=== PATIENT | female | born 1955 | race Caucasian/White ===

== ENCOUNTER 2020-09-12 09:38 | Outpatient (REF) | payer OTHER, SELFPAY ==
[2020-09-12 11:51] LABS: Estimated Average Glucose 91 mg/dL; Hemoglobin A1c % 4.8 %
[2020-09-12 11:56] LABS: Alanine Aminotransferase 19 U/L (0-31); Anion Gap 11 (12-20); Aspartate Amino Transferase 33 U/L (5-31); Blood Urea Nitrogen 9 mg/dL (9-16); Calcium 9.7 mg/dL (8.4-10.2); Carbon Dioxide 34 mmol/L (22-29); Chloride 96 mmol/L (96-108); Cholesterol 186 mg/dL; Estimated Glomerular Filt Rate > 60; Glucose Fasting 108 mg/dL (60-99); HDL Cholesterol 71 mg/dL; LDL Cholesterol Calculated 95 mg/dl; Sodium 137 mmol/L (135-145); Triglycerides 101 mg/dL
[2020-09-12 12:18] LABS: Vitamin D 25-OH Total 68.6 ng/mL (>30)
== END 2020-09-12 09:39 | disposition home or self-care (01) ==
LOC: HO.HMGCLDS 09:38
PROVIDERS: PCP Internal Medicine; Visit Provider Internal Medicine
DX: I10 Essential (primary) hypertension (principal); E78.5 Hyperlipidemia, unspecified; E55.9 Vitamin D deficiency, unspecified; R73.01 Impaired fasting glucose
CPT/HCPCS: 80048; 80061; 82306; 83036; 84450; 84460

== ENCOUNTER 2023-01-08 12:28 | Outpatient (AMB) | payer OTHER, SELFPAY ==
--- NOTE | 2023-01-08 12:33 | A.OFFPC_ITS ---
Vital Signs 01/08/23 12:35 Height 5 ft 3 in Weight 144 lb BMI 25.4 BP 158/90 H Blood Pressure Location Lt brachial Position Sitting Pulse 58 Pulse Source Pulse Oximeter Pulse Oximetry (%) 97 Intake Visit Reasons: Annual PE due for mammo & colonoscopy Intake Note: Pt is here today for her PE Allergies No Known Allergies Allergy (Verified 01/08/23 12:36) Medication List - Last Reconciled 01/08/23 by Tegan Rodriguez MD alprazolam 1 mg PO DAILY PRN amlodipine 2.5 mg PO DAILY atenolol 100 mg PO DAILY cholecalciferol (vitamin D3) 50 mcg PO DAILY escitalopram oxalate 10 mg PO DAILY hydrochlorothiazide 25 mg PO DAILY Tobacco use date assessed: 01/08/23 Fall risk assessment: 1 Fall in past year Last assessed Fall Risk: 01/08/23 [facility] Medical History (Updated 01/08/23 @ 13:26 by Tegan Rodriguez MD) Anxiety disorder Colon cancer screening Colonoscopy refused Dyslipidemia Erythema intertrigo Essential hypertension Immunization refused Impaired fasting glucose Mammogram declined Osteoporosis Surgical History History of surgery on arm Family History Father Unknown family medical history Mother HTN (hypertension) Diabetes mellitus Brother No problems noted. Sister No problems noted. Social History Housing: House Alcohol intake: current Alcohol intake frequency: a few times a month Patient Tobacco Use Status: Current everyday Tobacco user Cigarette Packs Per Day: 1 e-Cigarette/Vaping Use: Never Used Current occupational status: retired Cognitive needs: No Hearing needs: No Vision needs: Yes Questionnaire PHQ-9 Over the last 2 weeks, how often have you been bothered by any of the following problems? 1. Little interest or pleasure in doing things: not at all 2. Feeling down, depressed, or hopeless: not at all 3. Trouble falling or staying asleep, or sleeping too much: not at all 4. Feeling tired or having little energy: not at all 5. Poor appetite or overeating: not at all 6. Feeling bad about yourself - or that you are a failure or have let yourself or your family down: not at all 7. Trouble concentrating on things, such as reading the newspaper or watching te levision: not at all 8. Moving or speaking so slowly that other people could have noticed. Or the opposite - being so fidgety or restless that you have been moving around a lot more than usual: not at all 9. Thoughts that you would be better off or of hurting yourself in some way: not at all Total score: 0 Source: Developed by Drs. Arden Jean, Lamar Lin, Danial Ward and colleagues, with an educational marie from [employer]. Thrive Questionnaire Declines Thrive assessment: No Date Thrive assessed: 01/08/23 I am a: Patient Within the past 12 months, did the food you bought not last and you didn't have the money to get more?: Never true Within the past 12 months, did you worry whether your food would run out before you got money to buy more?: Never true Do you have trouble paying for medicines?: No Do you have trouble getting transportation to medical appointments?: No Do you have trouble paying your heating and electricity bill?: No Do you have trouble taking care of your child, family member or friend?: No Do you have trouble with day-to-day activities such as bathing, preparing meals, shopping, managing finances, etc.?: No Are you currently unemployed and looking for a job?: No Are you interested in more education?: No AUDIT C Alcohol Use Questionnaire (AUDIT-C) 1. How often do you have a drink containing alcohol?: 2-3 times a week 2. How many drinks containing alcohol do you have on a typical day when you are drinking?: 1 or 2 3. How often do you have six or more drinks on one occasion?: Never Total Score: 3 GABRIELLA-7 AMB Questionnaire GABRIELLA-7 Date GABRIELLA - 7 assessed: 01/08/23 Feeling nervous, anxious, or on edge: 0 = Not at all Not being able to stop or control worryin = Not at all Worrying too much about different things: 0 = Not at all Trouble relaxin = Not at all Being so restless that it is hard to sit still: 0 = Not at all Becoming easily annoyed or irritable: 0 = Not at all Feeling afraid as if something awful might happen: 0 = Not at all Total GABRIELLA-7 score (0-4 normal; 5-9 mild; 10-14 moderate; 15-21 severe): 0 Source: Developed by Drs. Arden Jean, Lamar Lin, Danial Ward and colleagues, with an educational marie from [employer]. Physical exam (Primary Care) Vital Signs: Last Vital Signs Pulse 58 01/08/23 12:35 BP 158/90 H 01/08/23 12:35 Pulse Ox 97 01/08/23 12:35 BMI result Body Mass Index 25.4 Tobacco/Smoking Status: Tobacco use Status Tobacco use date assessed 01/08/23 01/08/23 12:38 Patient Tobacco Use Status Current everyday Tobacco 01/08/23 12:38 e-Cigarette/Vaping Use Never Used 01/08/23 12:38 PHQ-9: PHQ-9 Score PHQ-9: Total score 0 01/08/23 12:38 Thrive Assessment: Date of Thrive Assessment Date Thrive assessed 01/08/23 01/08/23 12:38 Assessment and Plan Assessment & Plan (1) Colonoscopy refused: Code(s): Z53.20 - Procedure and treatment not carried out because of patient's decision for unspecified reasons (2) Osteoporosis: Code(s): M81.0 - Age-related osteoporosis without current pathological fracture Qualifiers: Osteoporosis type: age-related Presence of current pathological fracture: without current pathological fracture Qualified Code(s): M81.0 - Age- related osteoporosis without current pathological fracture (3) Dyslipidemia: Code(s): E78.5 - Hyperlipidemia, unspecified (4) Impaired fasting glucose: Code(s): R73.01 - Impaired fasting glucose (5) Anxiety disorder: Code(s): F41.9 - Anxiety disorder, unspecified Qualifiers: Anxiety disorder type: generalized anxiety disorder Qualified Code(s): F41.1 - Generalized anxiety disorder (6) Essential hypertension: Code(s): I10 - Essential (primary) hypertension Plan: Blood pressure elevated today. Increase amlodipine dose to 5 mg once a day in a.m. continue hydrochlorothiazide, atenolol. Blood pressure goal is less than 130/80. . Reinforced importance of following a low sodium diet, getting regular exercise, and lowering stress levels. (7) Annual visit for general adult medical examination with abnormal findings: Code(s): Z00.01 - Encounter for general adult medical examination with abnormal findings Orders: Orders Alanine Aminotransferase Today E78.5 - Hyperlipidemia, unspecified, F41.1 - Generalized anxiety disorder, I10 - Essential (primary) hypertension, M81.0 - Age-related osteoporosis without current pathological fracture, R73.01 - Impaired fasting glucose, Z00.01 - Encounter for general adult medical examination with abnormal findings Aspartate Amino Transferase Today E78.5 - Hyperlipidemia, unspecified, F41.1 - Generalized anxiety disorder, I10 - Essential (primary) hypertension, M81.0 - Age-related osteoporosis without current pathological fracture, R73.01 - Impaired fasting glucose, Z00.01 - Encounter for general adult medical examination with abnormal findings, Z28.21 - Immunization not carried out because of patient refusal, Z53.20 - Procedure and treatment not carried out because of patient's decision for unspecified reasons Basic Metabolic Panel Fasting Today E78.5 - Hyperlipidemia, unspecified, F41.1 - Generalized anxiety disorder, I10 - Essential (primary) hypertension, M81.0 - Age-related osteoporosis without current pathological fracture, R73.01 - Impaired fasting glucose, Z00.01 - Encounter for general adult medical examination with abnormal findings, Z28.21 - Immunization not carried out because of patient refusal, Z53.20 - Procedure and treatment not carried out because of patient's decision for unspecified reasons Lipid Panel Today E78.5 - Hyperlipidemia, unspecified, F41.1 - Generalized anxiety disorder, I10 - Essential (primary) hypertension, M81.0 - Age-related osteoporosis without current pathological fracture, R73.01 - Impaired fasting glucose, Z00.01 - Encounter for general adult medical examination with abnormal findings, Z28.21 - Immunization not carried out because of patient refusal, Z53.20 - Procedure and treatment not carried out because of patient's decision for unspecified reasons Vitamin D 25-OH Total Today E78.5 - Hyperlipidemia, unspecified, F41.1 - Generalized anxiety disorder, I10 - Essential (primary) hypertension, M81.0 - Age-related osteoporosis without current pathological fracture, R73.01 - Impaired fasting glucose, Z00.01 - Encounter for general adult medical examination with abnormal findings, Z28.21 - Immunization not carried out because of patient refusal, Z53.20 - Procedure and treatment not carried out because of patient's decision for unspecified reasons Medications: Changed From amlodipine 2.5 mg PO DAILY 90 tabs 0RF I10 - Essential (primary) hypertension To amlodipine 5 mg PO DAILY 90 tabs 4RF I10 - Essential (primary) hypertension From alprazolam take 1/2 to 1 tablet once a day only as needed for acute anxiety attacks 1 mg PO DAILY PRN 30 tabs 0RF anxiety F41.9 - Anxiety disorder, unspecified To alprazolam 0.25 mg PO DAILY PRN 20 tabs 0RF anxiety F41.9 - Anxiety disorder, unspecified Refilled atenolol 100 mg PO DAILY 90 tabs 3RF I10 - Essential (primary) hypertension escitalopram oxalate 10 mg PO DAILY 90 tabs 3RF F41.9 - Anxiety disorder, unspecified Coding Level of Care Code Est Pt Prev Care >65y(74325) Diagnoses Colonoscopy refused Z53.20 Osteoporosis M81.0 Osteoporosis type: age-related Presence of current pathological fracture: without current pathological fracture Dyslipidemia E78.5 Impaired fasting glucose R73.01 Anxiety disorder F41.1 Anxiety disorder type: generalized anxiety disorder Essential hypertension I10 Annual visit for general adult medical examination with abnormal findings Z00.01
[2023-01-08 12:35] VITALS: BP 158/90; PULSE 58; O2SAT 97; BMI 25.4
== END 2023-01-08 13:50 | disposition home or self-care (01) ==
LOC: HO.HMGC 12:28
PROVIDERS: PCP Internal Medicine; Visit Provider Internal Medicine
DX: Z53.20 Procedure and treatment not carried out because of patient's decision for unspecified reasons (principal); M81.0 Age-related osteoporosis without current pathological fracture; E78.5 Hyperlipidemia, unspecified; R73.01 Impaired fasting glucose; F41.1 Generalized anxiety disorder; I10 Essential (primary) hypertension; Z00.01 Encounter for general adult medical examination with abnormal findings
CPT/HCPCS: 99499

== ENCOUNTER 2023-09-22 09:00 | Outpatient (REF) | payer OTHER, SELFPAY ==
[2023-09-22 12:33] LABS: Alanine Aminotransferase 9 U/L (0-31); Anion Gap 14 (12-20); Aspartate Amino Transferase 18 U/L (5-31); Blood Urea Nitrogen 13 mg/dL (9-16); Calcium 10.8 mg/dL (8.4-10.2); Carbon Dioxide 32 mmol/L (22-29); Chloride 93 mmol/L (96-108); Cholesterol 197 mg/dL (<200); Estimated Glomerular Filt Rate > 60; Glucose Fasting 114 mg/dL (60-99); HDL Cholesterol 61 mg/dL (>40); LDL Cholesterol Calculated 120 mg/dL (<100); Potassium 3.3 mmol/L (3.3-5.1); Sodium 136 mmol/L (135-145); Triglycerides 82 mg/dL (<150)
== END 2023-09-22 09:01 | disposition home or self-care (01) ==
LOC: HO.HMGCLDS 09:00
PROVIDERS: PCP Internal Medicine; Visit Provider Internal Medicine
DX: Z00.01 Encounter for general adult medical examination with abnormal findings (principal); M81.0 Age-related osteoporosis without current pathological fracture; E78.5 Hyperlipidemia, unspecified; R73.01 Impaired fasting glucose; F41.1 Generalized anxiety disorder; I10 Essential (primary) hypertension
CPT/HCPCS: 36415; 80048; 80061; 82306; 84450; 84460

== ENCOUNTER 2023-10-29 13:10 | Outpatient (AMB) | payer OTHER, SELFPAY ==
[2023-10-29 13:24] VITALS: BP 128/64; PULSE 64; O2SAT 96; BMI 24.4
--- NOTE | 2023-10-29 13:24 | MHC.PC.OV ---
Vital Signs 10/29/23 13:24 Height 5 ft 3 in Weight 138 lb BMI 24.4 BP 128/64 Blood Pressure Location Lt brachial Position Sitting Pulse 64 Pulse Source Pulse Oximeter Pulse Oximetry (%) 96 Oxygen Delivery Method Room Air Intake Visit Reasons: Dermatology Referral, rescheduled from 09/30 Intake Note: Pt is here today for a follow up visit.Pt states that she needs referral to [facility] Inspector. Allergies No Known Allergies Allergy (Verified 01/06/24 16:18) Medication List - Last Reconciled 10/29/23 by Tegan Rodriguez MD alprazolam 0.25 mg PO DAILY PRN atenolol 100 mg PO DAILY cholecalciferol (vitamin D3) 50 mcg PO DAILY hydrochlorothiazide 25 mg PO DAILY Tobacco use date assessed: 10/29/23 Dental Screening Dental Screen Date: 10/29/23 Did you have a dental visit in the last 12 months?: No Did you have a dental problem in the last 6 months where you did not have access to dental care?: No Was dental information given to patient?: Patient declined HPI Dermatology Referral, rescheduled from 09/30 HPI Details 68-year-old lady with hypertension, osteoporosis, dyslipidemia , elevated calcium level on recent labs, impaired fasting glucose, and anxiety disorder, here today for follow-up. She has been feeling well, but has lump on her right arm that has been present diarrhea for more than 20 years, but has started to increase in size and has started having foul-smelling discharge,- she wants to get checked. No history of trauma [facility] Medical History Hypercalcemia Basal cell carcinoma (11/25/23) Mammogram declined Immunization refused Colon cancer screening Colonoscopy refused Erythema intertrigo Osteoporosis Dyslipidemia Impaired fasting glucose Anxiety disorder Essential hypertension Surgical History History of excision of mass (11/25/23) History of surgery on arm Family History Father Unknown family medical history Mother HTN (hypertension) Diabetes mellitus Brother No problems noted. Sister No problems noted. Social History Housing: House Alcohol intake: current Alcohol intake frequency: a few times a month Patient Tobacco Use Status: Current everyday Tobacco user Cigarette Packs Per Day: 1 e-Cigarette/Vaping Use: Never Used Current occupational status: retired Cognitive needs: No Hearing needs: No Vision needs: Yes Questionnaire PHQ-9 Over the last 2 weeks, how often have you been bothered by any of the following problems? Depression Screening Interpretation: Negative Depression Screening Done: Yes Source: Developed by Drs. Arden Jean, Lamar Lin, Danial Ward and colleagues, with an educational marie from [employer]. Thrive Questionnaire Date Thrive assessed: 01/08/23 AUDIT C Alcohol Use Questionnaire (AUDIT-C) 1. How often do you have a drink containing alcohol?: Never Total Score: 0 GABRIELLA-7 AMB Questionnaire GABRIELLA-7 Date GABRIELLA - 7 assessed: 01/08/23 Source: Developed by Drs. Arden Jean, Lamar Lin, Danial Ward and colleagues, with an educational marie from [employer]. Review of Systems Const Denies fatigue, Denies fever(s), Denies headache(s) and Denies weakness Eyes Denies change in vision ENT Denies dizziness, Denies headache(s), Denies nasal congestion and Denies nasal discharge Card Denies chest pain, Denies lightheadedness, Denies palpitations and Denies dyspnea Resp Denies chest congestion, Denies cough, Denies dyspnea and Denies wheezing GI Denies abdominal pain, Denies melena, Denies bloating, Denies hematochezia, Denies change in bowel habits and Denies heartburn Denies urinary frequency, Denies dysuria and Denies urinary urgency Musc Reports as per HPI, Denies arthralgias and Reports stiffness Skin/Breast Reports as per HPI and Denies rash Neuro Denies dizziness, Denies headache(s) and Denies weakness Psych Denies anxiety, Denies change in appetite, Denies depression, Denies difficulty concentrating, Denies anhedonia, Denies mood swings, Denies panic attacks, Denies homicidal ideation and Denies suicidal ideation Endo Denies fatigue, Denies polydipsia, Denies polyuria and Denies palpitations Jameson/Lymph Denies easy bruising Aller/Immun Denies seasonal rhinorrhea and Denies wheezing Physical exam (Primary Care) Vital Signs: Last Vital Signs Pulse 64 10/29/23 13:24 BP 128/64 10/29/23 13:24 Pulse Ox 96 10/29/23 13:24 Oxygen Delivery Method Room Air 10/29/23 13:24 BMI result Body Mass Index 24.4 Tobacco/Smoking Status: Tobacco use Status Tobacco use date assessed 10/29/23 10/29/23 13:31 Patient Tobacco Use Status Former Tobacco user 10/29/23 13:31 e-Cigarette/Vaping Use Never Used 10/29/23 13:31 Depression Screening Interpretation: Negative Thrive Assessment: Date of Thrive Assessment Date Thrive assessed 01/08/23 10/29/23 13:31 Const General: no acute distress and alert Orientation/consciousness: patient oriented x3 HENMT Ears: external ears normal General nose exam: Normal external nose present Mouth: Normal oral and palatal mucosa present and moist mucous membranes Eyes General: appearance normal, both eyes and all related structures Neck Neck: Yes full ROM, Yes no lymphadenopathy and Yes supple Resp Effort & Inspection: normal respiratory effort and able to speak in complete sentences Auscultation: clear to auscultation bilaterally Cardio Rate: regular rate Rhythm: regular rhythm Heart sounds: S1 normal heart sound present and S2 normal heart sound present GI Palpation (GI): Soft to palpation, nontender and no masses Auscultation: normal bowel sounds Back/Spine/Pelvis Back: No back tenderness Neuro General: patient oriented x3, gait normal, tone normal, moves all extremities, Normal light touch and pain sensation and no focal motor deficits Cranial nerves: Yes CN's II-XII intact bilaterally Cognition (Neuro): normal cognition Extrem Other: Firm nontender hyperpigmented mass on right upper arm General: Yes full ROM, Yes no joint enlargement, Yes no clubbing, cyanosis or edema and Yes no calf tenderness Assessment and Plan Assessment & Plan (1) Mass of right upper extremity: Code(s): R22.31 - Localized swelling, mass and lump, right upper limb Plan: Referred to general surgery for further evaluation (2) Essential hypertension: Code(s): I10 - Essential (primary) hypertension Plan: Blood pressure at goal of less than 130/80. Continue with current medication. Reinforced importance of following a low sodium diet, getting regular exercise, and lowering stress levels. (3) Impaired fasting glucose: Code(s): R73.01 - Impaired fasting glucose Plan: Your fasting blood sugars elevated above 100 mg/dL. Impaired glucose metabolism makes you at risk for developing diabetes mellitus type 2, as well as heart attack and stroke later on. Lifestyle changes at just weight loss, healthy eating habits, and regular exercise are important, and can prevent the progression to diabetes. Ordered repeat fasting lipid panel and hemoglobin A1c (4) Dyslipidemia: Code(s): E78.5 - Hyperlipidemia, unspecified Plan: Fasting lipid panel ordered, continue with adhering to healthy diet, and getting regular exercise. (5) Hypercalcemia: Code(s): E83.52 - Hypercalcemia Plan: Ordered ionized calcium level Orders: Orders Hemoglobin A1c 12/06/23 E83.52 - Hypercalcemia, I10 - Essential (primary) hypertension, R73.01 - Impaired fasting glucose, E78.5 - Hyperlipidemia, unspecified, M81.0 - Age-related osteoporosis without current pathological fracture, E89.40 - Asymptomatic postprocedural ovarian failure Calcium, Ionized 12/06/23 E83.52 - Hypercalcemia, I10 - Essential (primary) hypertension, R73.01 - Impaired fasting glucose, E78.5 - Hyperlipidemia, unspecified, M81.0 - Age-related osteoporosis without current pathological fracture, E89.40 - Asymptomatic postprocedural ovarian failure Vitamin D 25-OH Total 12/06/23 E83.52 - Hypercalcemia, I10 - Essential (primary) hypertension, R73.01 - Impaired fasting glucose, E78.5 - Hyperlipidemia, unspecified, M81.0 - Age-related osteoporosis without current pathological fracture, E89.40 - Asymptomatic postprocedural ovarian failure Alanine Aminotransferase 12/06/23 E83.52 - Hypercalcemia, I10 - Essential (primary) hypertension, R73.01 - Impaired fasting glucose, E78.5 - Hyperlipidemia, unspecified, M81.0 - Age-related osteoporosis without current pathological fracture, E89.40 - Asymptomatic postprocedural ovarian failure Lipid Panel 12/06/23 E83.52 - Hypercalcemia, I10 - Essential (primary) hypertension, R73.01 - Impaired fasting glucose, E78.5 - Hyperlipidemia, unspecified, M81.0 - Age-related osteoporosis without current pathological fracture, E89.40 - Asymptomatic postprocedural ovarian failure Basic Metabolic Panel Fasting 12/06/23 E83.52 - Hypercalcemia, I10 - Essential (primary) hypertension, R73.01 - Impaired fasting glucose, E78.5 - Hyperlipidemia, unspecified, M81.0 - Age-related osteoporosis without current pathological fracture, E89.40 - Asymptomatic postprocedural ovarian failure Aspartate Amino Transferase 12/06/23 E83.52 - Hypercalcemia, I10 - Essential (primary) hypertension, R73.01 - Impaired fasting glucose, E78.5 - Hyperlipidemia, unspecified, M81.0 - Age-related osteoporosis without current pathological fracture, E89.40 - Asymptomatic postprocedural ovarian failure Referrals General Surgery Referral R22.31 - Localized swelling, mass and lump, right upper limb Medications: Refilled alprazolam 0.25 mg PO DAILY PRN 20 tabs 0RF anxiety F41.9 - Anxiety disorder, unspecified Coding Level of Care Code Est Pt Level 4 (65213) Diagnoses Mass of right upper extremity R22.31 Essential hypertension I10 Impaired fasting glucose R73.01 Dyslipidemia E78.5 Hypercalcemia E83.52
== END 2023-10-29 14:46 | disposition home or self-care (01) ==
PROVIDERS: PCP Internal Medicine; Visit Provider Internal Medicine
DX: R22.31 Localized swelling, mass and lump, right upper limb (principal); I10 Essential (primary) hypertension; R73.01 Impaired fasting glucose; E78.5 Hyperlipidemia, unspecified; E83.52 Hypercalcemia
CPT/HCPCS: 99214

== ENCOUNTER 2023-11-02 14:13 | Outpatient (AMB) | payer OTHER, SELFPAY ==
--- NOTE | 2023-11-02 14:27 | A.OFFVIS_ITS ---
Intake Vital Signs 11/02/23 14:37 Height 5 ft 3 in Weight 139 lb 2 oz BMI 24.6 BP 171/73 H Blood Pressure Location Lt brachial Position Sitting Pulse 59 Intake Visit Reasons: mass and lump, right upper limb Intake Note: Patient is seen in office for evaluation and treatment of a mass on the upper right limb. 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 She has a right upper outer arm mass which she has had for approximately 30 years time. It has become quite large and symptomatic. She wishes to have it excised. She has no such lesions elsewhere. Chart was reviewed patient evaluated [facility] Medical History (Updated 01/08/23 @ 13:26 by Tegan Rodriguez MD) Mammogram declined Immunization refused Colon cancer screening Colonoscopy refused Erythema intertrigo Osteoporosis Dyslipidemia Impaired fasting glucose Anxiety disorder Essential hypertension Surgical History History of surgery on arm Family History Father Unknown family medical history Mother HTN (hypertension) Diabetes mellitus Brother No problems noted. Sister No problems noted. Social History Housing: House Alcohol intake: current Alcohol intake frequency: a few times a month Patient Tobacco Use Status: Former Tobacco user Quit Date: 10/27/23 Cigarette Packs Per Day: 1 e-Cigarette/Vaping Use: Never Used Current occupational status: retired Cognitive needs: No Hearing needs: No Vision needs: Yes Physical Exam Vital Signs: Last Vital Signs Pulse 59 11/02/23 14:37 BP 171/73 H 11/02/23 14:37 BMI result Body Mass Index 24.6 Chest Other: Chest sounds bilaterally, HS 1 in 2 GI Other: Abdomen soft, corpulent, benign Skin Other: Patient has approximately 5 x 4 cm exophytic fungating growth of the upper outer arm. 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 Risks, benefits, alternatives of excision of this process were reviewed the patient and included but not limited to bleeding, infection, recurrence, numbness, pain, scarring, wound dehiscence, wound seroma and the patient was to proceed. All questions were answered. Arrangements were made for this. Coding Level of Care Code New Pt Level 5 (89929) Diagnoses Mass of soft tissue of upper arm M79.89
[2023-11-02 14:37] VITALS: BP 171/73; PULSE 59; BMI 24.6
== END 2023-11-02 14:53 | disposition home or self-care (01) ==
PROVIDERS: PCP Internal Medicine; Visit Provider Surgery
DX: M79.89 Other specified soft tissue disorders (principal)
CPT/HCPCS: 99204

== ENCOUNTER → 2023-11-02 14:13 | Outpatient (BNVA) | payer OTHER, SELFPAY | PROVIDERS: PCP Internal Medicine; Visit Provider Surgery ==

== ENCOUNTER 2023-11-25 07:51 | Day surgery (SDC) | payer OTHER, SELFPAY ==
[2023-11-23 09:55] VITALS: BMI 24.4
--- NOTE | 2023-11-24 15:06 | MHC.SHP ---
Pre-Procedural Eval Section A Date of Service: 11/24/23 The patient is an INPATIENT: No Changes since office visit: No Cold of Flu in the past 2 weeks, No New Medical Problems, No Changes in Medication and No Patient answered all questions The History & Physical has been completed within 30 days and I have reviewed it.: Yes Section B Chief Complaint: Other specified soft tissue disorders Allergies: Allergies Allergy/AdvReac Type Severity Reaction Status Date / Time No Known Allergies Allergy Verified 11/02/23 14:37 Plan I have reviewed the history and physical and performed a pertinent physical examination on my patient. No changes have occurred unless specified. Time Spent With Patient Time: Total time managing care of this patient today ____ minutes.
[2023-11-25] VITALS (9 sets, daily range): BP systolic 114–237; BP diastolic 63–86; PULSE 55–86; RESP 14–18; TEMP 36.7–36.8; O2SAT 91–95; BMI 25.2
[2023-11-25] MEDS: Lactated Ringers 1,000 ML 50 ML IVCONT (08:13)
--- NOTE | 2023-11-25 08:53 | PC.NURSE ---
Dr. Bennett aware that patient initial blood pressures - different arms, different cuffs, manual were 227/86, 231/96, 237/78. Patient relaxed and re-checked and result was 161/69. Dr. Bennett aware and okay. Dr. Holder ordered duoneb as well due to patient being heavy cigarette and marijuana smoker. lcta, but smokers cough noted often.
[2023-11-25] MEDS: Albuterol/Iprat 2.5/0.5MG 3 ML AMPUL.NEB INHALE (09:11)
--- NOTE | 2023-11-25 09:44 | P.CONAN_ITS ---
[facility] Active Problems Active Problems: All Active Problems (Updated 01/08/23 @ 13:26 by Tegan Rodriguez MD) Mass of soft tissue of upper arm (Acute) Mammogram declined (Acute) Immunization refused (Acute) Colon cancer screening (Acute) Colonoscopy refused (Acute) Osteoporosis (Acute) Dyslipidemia (Acute) Impaired fasting glucose (Acute) Anxiety disorder (Acute) Essential hypertension (Acute) Past Medical History Medical History Mammogram declined Immunization refused Colon cancer screening Colonoscopy refused Erythema intertrigo Osteoporosis Dyslipidemia Impaired fasting glucose Anxiety disorder Essential hypertension Family History Family History Father Unknown family medical history Mother HTN (hypertension) Diabetes mellitus Brother No problems noted. Sister No problems noted. Family history of problems with anesthesia: No Surgical History Surgical History History of surgery on arm History of Problems with Anesthesia: No Social History Social History Housing: House Alcohol intake: current Alcohol intake frequency: a few times a month Patient Tobacco Use Status: Current everyday Tobacco user Cigarette Packs Per Day: 1 e-Cigarette/Vaping Use: Never Used Substance Use Frequency: Daily Are you DNR?: No Advance Directives: No Advance Directives Information Provided: Yes Nutrition Risks: No Nutritional Risk Current occupational status: retired Cognitive needs: No Hearing needs: No Vision needs: Yes Meds Allergies Allergy/AdvReac Type Severity Reaction Status Date / Time No Known Allergies Allergy Verified 11/25/23 07:56 Active Medications: Current Medications Lactated Ringer's (Lr) 1,000 mls @ 50 mls/hr IVCONT .Q20H JOSÉ MIGUEL Last Admin: 11/25/23 08:13 Dose: 50 mls/hr Home Medications Medication Instructions Recorded Confirmed Last Taken Type cholecalciferol (vitamin D3) 50 50 mcg PO DAILY 03/31/21 11/25/23 Unknown History mcg (2,000 unit) capsule Exam Height,Weight and Vital Signs: Height 5 ft 3 in Weight 64.41 kg Last Vital Signs Temp 98.1 F 11/25/23 08:30 Pulse 67 11/25/23 09:13 Resp 17 11/25/23 09:13 BP 161/69 H 11/25/23 08:58 Pulse Ox 94 11/25/23 08:30 O2 Del Method Room Air 11/25/23 08:30 Airway Mallampati Class: II TM Dist: <=3cm Neck ROM: Full Denture: Upper Partial: Lower Heart: ok Lungs: ok Assessment and Plan Assessment Anesthesia Assessment: Anesthesia Plan Discussed and Chart Reviewed Final Anesthetic Review Family History of Problems with Anesthesia: No History of Problems with Anesthesia: No NPO: Yes ASA Class: II Final Preanesthetic Review: No Changes in Pt Med Stat, Meds/Allgs Chart Reviewed, Consent Obtained/Reviewed and Anes Risks/Benef Reviewed Patient Risk: Low Procedure Risk: Low Anesthetic Plan Anesthetic Plan: GA and Agree w/ Assess. and Plan Disposition: Standard PACU
--- NOTE | 2023-11-25 10:31 | W.PM.OPN ---
Operative Note Operative Note Date of Service: 11/25/23 Narrative: Preoperative diagnosis: [] Right upper outer arm exophytic mass Postop diagnosis: [] Same Procedure [] wide local excision right upper outer arm mass Surgeon: [] [employer] Operator: [] Rika Type of Anesthesia: [] General Indication for surgery: [] Final specimen measured approximately 10 x 6 cm of a fungating exophytic mass of the upper outer arm. Findings: [] Patient brought to the operating room, placed on operative table supine position, after adequate level of general anesthesia was induced, the right upper extremity and shoulder area were circumferentially prepped and draped in usual sterile fashion. Using a longitudinal bi- elliptical incision to grossly clear margins around the mass in question, this carried down through skin, subcutaneous tissue, and undermined using Bovie. Specimen was tagged and sent to pathology. Medial and lateral skin flaps were developed using Bovie and the wound was irrigated, secured hemostasis, and closed using interrupted inverted dermal 3-0 Vicryl sutures followed by Steri-Strips and sterile dressings. Wound was infiltrated 0.5% Marcaine. At completion, incision was well perfused and under no tension. Sponge, needle, and instrument counts were reported correct. Patient tolerated the procedure well and emerged anesthesia stable condition. EBL minimal
== END 2023-11-25 11:46 | disposition home or self-care (01) ==
PROVIDERS: PCP Internal Medicine; Visit Provider Surgery
PROC: (CPT 11606; principal; 2023-11-25 09:50)
DX: C44.612 Basal cell carcinoma of skin of right upper limb, including shoulder (principal); I10 Essential (primary) hypertension; R73.01 Impaired fasting glucose; E78.5 Hyperlipidemia, unspecified; M81.0 Age-related osteoporosis without current pathological fracture; F41.9 Anxiety disorder, unspecified; Z79.899 Other long term (current) drug therapy; Z87.891 Personal history of nicotine dependence; Z98.890 Other specified postprocedural states
CPT/HCPCS: 11606; 88305; J0690; J2250; J2704; J2795; J3010

== ENCOUNTER → 2023-11-25 07:51 | Outpatient (BNV) | payer OTHER, SELFPAY | PROVIDERS: PCP Internal Medicine; Visit Provider Surgery | DX: C44.612 Basal cell carcinoma of skin of right upper limb, including shoulder (principal) | CPT/HCPCS: 11606 ==

== ENCOUNTER → 2023-12-13 10:19 | Outpatient (BNVA) | payer OTHER, SELFPAY | PROVIDERS: PCP Internal Medicine; Visit Provider Surgery ==

== ENCOUNTER 2023-12-13 10:20 | Outpatient (AMB) | payer OTHER, SELFPAY ==
--- NOTE | 2023-12-13 10:28 | A.OFFVIS_ITS ---
Intake Vital Signs 12/13/23 10:29 Weight 139 lb BP 132/90 H Blood Pressure Location Lt brachial Position Sitting Pulse 66 Intake Visit Reasons: S/P WLE Rt. upper extremity tumor Intake Note: Patient here s/p exc on rt upper arm. Patient denies pain, oozing. Only took rx pain meds for the first 2d. 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 She has no wound issues or complaints. She presents here with . Pathology was reviewed. Basal cell carcinoma quite large was circumferentially clear margins [facility] Medical History Basal cell carcinoma (11/25/23) Mammogram declined Immunization refused Colon cancer screening Colonoscopy refused Erythema intertrigo Osteoporosis Dyslipidemia Impaired fasting glucose Anxiety disorder Essential hypertension Surgical History (Updated 12/13/23 @ 10:35 by Donte Reis MD) History of excision of mass (11/25/23) History of surgery on arm Family History Father Unknown family medical history Mother HTN (hypertension) Diabetes mellitus Brother No problems noted. Sister No problems noted. Social History Housing: House Alcohol intake: current Alcohol intake frequency: a few times a month Patient Tobacco Use Status: Current everyday Tobacco user Cigarette Packs Per Day: 1 e-Cigarette/Vaping Use: Never Used Current occupational status: retired Cognitive needs: No Hearing needs: No Vision needs: Yes Physical Exam Vital Signs: Last Vital Signs Pulse 66 12/13/23 10:29 BP 132/90 H 12/13/23 10:29 Extrem Other: Incision clean dry and intact healing uneventfully. Assessment & Plan Assessment & Plan (1) History of excision of mass: Onset Date: 11/25/23 Comment: Wide local excision right upper outer arm mass, Donte Reis MD Code(s): Z98.890 - Other specified postprocedural states Plan Patient has been given local instructions, and will see me approximate 6 months time for surveillance or p.r.n.. All questions answered. Coding Level of Care Code Global (72364) Diagnoses History of excision of mass Z98.890
[2023-12-13 10:29] VITALS: BP 132/90; PULSE 66
== END 2023-12-13 10:35 | disposition home or self-care (01) ==
PROVIDERS: PCP Internal Medicine; Visit Provider Surgery
DX: Z98.890 Other specified postprocedural states (principal)
CPT/HCPCS: 99024

== ENCOUNTER 2024-01-01 09:36 | Outpatient (REF) | payer OTHER, SELFPAY ==
[2024-01-01 12:03] LABS: Estimated Average Glucose 108 mg/dL; Hemoglobin A1c % 5.4 % (<6.0)
[2024-01-01 12:27] LABS: Alanine Aminotransferase 9 U/L (0-31); Anion Gap 11 (12-20); Aspartate Amino Transferase 15 U/L (5-31); Blood Urea Nitrogen 18 mg/dL (9-16); Carbon Dioxide 32 mmol/L (22-29); Chloride 98 mmol/L (96-108); Cholesterol 182 mg/dL (<200); Estimated Glomerular Filt Rate > 60; Glucose Fasting 93 mg/dL (60-99); HDL Cholesterol 64 mg/dL (>40); LDL Cholesterol Calculated 102 mg/dL (<100); Potassium 3.8 mmol/L (3.3-5.1); Sodium 137 mmol/L (135-145); Triglycerides 81 mg/dL (<150)
[2024-01-01 12:45] LABS: Vitamin D 25-OH Total 69.1 ng/mL (>30)
[2024-01-03 15:23] LABS: Calcium, Ionized 5.7 mg/dL (4.7-5.5)
== END 2024-01-01 09:37 | disposition home or self-care (01) ==
LOC: HO.HMGCLDS 09:36
PROVIDERS: PCP Internal Medicine; Visit Provider Internal Medicine
DX: E83.52 Hypercalcemia (principal); I10 Essential (primary) hypertension; R73.01 Impaired fasting glucose; E78.5 Hyperlipidemia, unspecified; M81.0 Age-related osteoporosis without current pathological fracture; E89.40 Asymptomatic postprocedural ovarian failure
CPT/HCPCS: 36415; 80048; 80061; 82306; 82330; 83036; 84450; 84460

== ENCOUNTER 2024-01-06 15:03 | Outpatient (AMB) | payer OTHER, SELFPAY ==
--- NOTE | 2024-01-06 16:00 | MHC.PC.OV ---
Vital Signs 01/06/24 16:01 Height 5 ft 3 in Weight 142 lb BMI 25.2 BP 122/74 Blood Pressure Location Lt brachial Position Sitting Pulse 58 Pulse Source Pulse Oximeter Pulse Oximetry (%) 94 Oxygen Delivery Method Room Air Intake Visit Reasons: f/u anxiety and labs Intake Note: Pt is here today to f/u anxiety and labs Allergies No Known Allergies Allergy (Verified 01/06/24 16:18) Medication List - Last Reconciled 01/06/24 by Tegan Rodriguez MD alprazolam 0.25 mg PO DAILY PRN atenolol 100 mg PO DAILY cholecalciferol (vitamin D3) 50 mcg PO DAILY hydrochlorothiazide 25 mg PO DAILY Tobacco use date assessed: 01/06/24 Fall risk assessment: No Falls in past year Last assessed Fall Risk: 01/06/24 Dental Screening Dental Screen Date: 01/06/24 Did you have a dental visit in the last 12 months?: No Was dental information given to patient?: No HPI f/u anxiety and labs HPI Details 68-year-old lady here today for follow-up. She has anxiety disorder currently taking alprazolam 0.25 mg 1 tablet once a day only as needed for acute anxiety attacks. She rarely needs to use it and still has some left over from her old prescription, but are . She has hypertension currently taking 100 mg of atenolol daily in addition to hydrochlorothiazide 25 mg once a day in a.m.. She has known osteoporosis, with no history of fracture, declines further testing [facility] Medical History Hypercalcemia Basal cell carcinoma (11/25/23) Mammogram declined Immunization refused Colon cancer screening Colonoscopy refused Erythema intertrigo Osteoporosis Dyslipidemia Impaired fasting glucose Anxiety disorder Essential hypertension Surgical History History of excision of mass (11/25/23) History of surgery on arm Family History Father Unknown family medical history Mother HTN (hypertension) Diabetes mellitus Brother No problems noted. Sister No problems noted. Social History Housing: House Alcohol intake: current Alcohol intake frequency: a few times a month Patient Tobacco Use Status: Current everyday Tobacco user Cigarette Packs Per Day: 1 e-Cigarette/Vaping Use: Never Used Current occupational status: retired Cognitive needs: No Hearing needs: No Vision needs: Yes Questionnaire PHQ-9 Over the last 2 weeks, how often have you been bothered by any of the following problems? 1. Little interest or pleasure in doing things: not at all 2. Feeling down, depressed, or hopeless: not at all 3. Trouble falling or staying asleep, or sleeping too much: not at all 4. Feeling tired or having little energy: not at all 5. Poor appetite or overeating: not at all 6. Feeling bad about yourself - or that you are a failure or have let yourself or your family down: not at all 7. Trouble concentrating on things, such as reading the newspaper or watching television: not at all 8. Moving or speaking so slowly that other people could have noticed. Or the opposite - being so fidgety or restless that you have been moving around a lot more than usual: not at all 9. Thoughts that you would be better off or of hurting yourself in some way: not at all Total score: 0 Depression Screening Interpretation: Negative Depression Screening Done: Yes 56504 - PHQ-9 Billing: Yes Source: Developed by Drs. Arden Jean, Lamar Lin, Danial Ward and colleagues, with an educational marie from [employer]. Thrive Questionnaire Date Thrive assessed: 01/08/23 I am a: Patient What is your living situation today?: I have a steady place to live Within the past 12 months, did the food you bought not last and you didn't have the money to get more?: Never true Within the past 12 months, did you worry whether your food would run out before you got money to buy more?: Never true Do you have trouble paying for medicines?: No Do you have trouble getting transportation to medical appointments?: No Do you have trouble paying your heating and electricity bill?: No Do you have trouble taking care of your child, family member or friend?: No Do you have trouble with day-to-day activities such as bathing, preparing meals, shopping, managing finances, etc.?: No Are you currently unemployed and looking for a job?: No Are you interested in more education?: No THRIVE Score: 0 AUDIT C Alcohol Use Questionnaire (AUDIT-C) 1. How often do you have a drink containing alcohol?: Monthly or less 2. How many drinks containing alcohol do you have on a typical day when you are drinking?: 1 or 2 3. How often do you have six or more drinks on one occasion?: Never Total Score: 1 GABRIELLA-7 AMB Questionnaire GABRIELLA-7 Date GABRIELLA - 7 assessed: 01/06/24 Feeling nervous, anxious, or on edge: 0 = Not at all Not being able to stop or control worryin = Several days Worrying too much about different things: 1 = Several days Trouble relaxin = Not at all Being so restless that it is hard to sit still: 0 = Not at all Becoming easily annoyed or irritable: 0 = Not at all Feeling afraid as if something awful might happen: 0 = Not at all Total GABRIELLA-7 score (0-4 normal; 5-9 mild; 10-14 moderate; 15-21 severe): 2 Source: Developed by Drs. Arden Jean, Lamar Lin, Danial Ward and colleagues, with an educational marie from [employer]. GABRIELLA-7 Assessment Billing GABRIELLA-7 Assessment Tool: GABRIELLA-7 Assessment 21084 Review of Systems Const Denies body aches, Denies fatigue, Denies fever(s), Denies headache(s) and Denies weakness Eyes Denies change in vision, Denies eye discharge and Denies itchy eyes ENT Denies dizziness, Denies headache(s), Denies nasal congestion, Denies nasal discharge and Denies sore throat Card Denies chest pain, Denies lightheadedness, Denies palpitations and Denies dyspnea Resp Denies chest congestion, Denies cough, Denies dyspnea and Denies wheezing GI Denies abdominal pain, Denies melena, Denies bloating, Denies hematochezia, Denies change in bowel habits and Denies heartburn Denies urinary frequency, Denies dysuria and Denies urinary urgency Musc Denies arthralgias and Reports stiffness Skin/Breast Denies lesions and Denies rash Neuro Denies dizziness, Denies headache(s) and Denies weakness Psych Denies anxiety, Denies change in appetite, Denies depression, Denies difficulty concentrating, Denies anhedonia, Denies mood swings, Denies panic attacks, Denies homicidal ideation and Denies suicidal ideation Endo Denies fatigue, Denies polydipsia, Denies polyuria and Denies palpitations Jameson/Lymph Denies easy bruising Aller/Immun Denies itchy eyes, Denies seasonal rhinorrhea and Denies wheezing Physical exam (Primary Care) Vital Signs: Last Vital Signs Pulse 58 01/06/24 16:01 BP 122/74 01/06/24 16:01 Pulse Ox 94 01/06/24 16:01 Oxygen Delivery Method Room Air 01/06/24 16:01 BMI result Body Mass Index 25.2 Tobacco/Smoking Status: Tobacco use Status Tobacco use date assessed 01/06/24 01/06/24 16:06 Patient Tobacco Use Status Current everyday Tobacco 01/06/24 16:06 e-Cigarette/Vaping Use Never Used 01/06/24 16:06 PHQ-9: PHQ-9 Score PHQ-9: Total score 0 01/06/24 16:35 Depression Screening Interpretation: Negative Thrive Assessment: Date of Thrive Assessment Date Thrive assessed 01/08/23 01/06/24 16:06 Const General: no acute distress and alert Orientation/consciousness: patient oriented x3 HENMT Ears: external ears normal General nose exam: Normal external nose present Mouth: Normal oral and palatal mucosa present and moist mucous membranes Eyes General: appearance normal, both eyes and all related structures Neck Neck: Yes full ROM, Yes no lymphadenopathy and Yes supple Resp Effort & Inspection: normal respiratory effort and able to speak in complete sentences Auscultation: clear to auscultation bilaterally Cardio Rate: regular rate Rhythm: regular rhythm Heart sounds: S1 normal heart sound present and S2 normal heart sound present GI Palpation (GI): Soft to palpation, nontender and no masses Auscultation: normal bowel sounds Back/Spine/Pelvis Back: No back tenderness Neuro General: patient oriented x3, gait normal, tone normal, moves all extremities, Normal light touch and pain sensation and no focal motor deficits Cranial nerves: Yes CN's II-XII intact bilaterally Cognition (Neuro): normal cognition Extrem General: Yes full ROM, Yes no joint enlargement, Yes no clubbing, cyanosis or edema and Yes no calf tenderness Psych Appearance: grossly normal and well kempt Mental Status: mental status grossly normal Speech and movement: Normal speech and movement present Affect: normal affect Attitude: cooperative Thought process: Normal thought process present Thought content: no homicidality Results Reviewed Results Reviewed: Name: Krysten Killian Age/Sex: 68/F : 1955 Unit#: [id number] Attend Dr: Tegan Rodriguez MD Re01/01/24 Status: DEP REF Location: [facility] Disch: SPEC : [id number] JAKE: 01/01/24 STATUS: COMP REQ : [id number] RECD: 01/01/24-[address]: Tegan Rodriguez MD COMP: 01/01/24 ENTERED: 01/01/24-[address]: ORDERED: Met Prof Fast, AST, ALT, Lipid Panel, Vitamin D 25-OH Test Result Flag Reference Sodium 137 135-145 mmol/L Potassium 3.8 3.3-5.1 mmol/L CL 98 96-108 mmol/L CO2 32 H 22-29 mmol/L Gap 11 L 12-20 BUN 18 H 9-16 mg/dL Creat 0.66 0.5-1.4 mg/dL EGFR > 60 NOTE: For -[place] individuals, multiply the result by 1.210. Chronic Kidney Disease: Estimated GFR < 60 mL/min/1.73m2 Severe Kidney Disease: Estimated GFR < 15 mL/min/1.73m2 FBS 93 60-99 mg/dL CA 10.0 # 8.4-10.2 mg/dL AST (GOT) 15 5-31 U/L ALT (GPT) 9 0-31 U/L Triglyceride 81 <150 mg/dL Desirable Triglyceride: less than 150 mg/dL Borderline High Triglyceride 150-199 mg/dL High Triglyceride: 200-499 mg/dL Very High Triglyceride: greater than or equal to 5OO mg/dL Cholesterol 182 <200 mg/dL Desirable Cholesterol: less than 200 mg/dL Borderline High Cholesterol: 200-239 mg/dL High Cholesterol: greater than 239 mg/dL LDL Calculated 102 H <100 mg/dL Desirable LDL: less than 100 mg/dL Near Optimal/Above Optimal LDL: 110-129 mg/dL Borderline High LDL: 130-159 mg/dL High LDL: 160-189 mg/dL Very High LDL: greater than or equal to 190 mg/dL HDL 64 >40 mg/dL Desirable HDL: greater than 40 mg/dL Note: This HDL assay may give artificially low results in patients with liver disease. Vit D 25-OH Tot 69.1 >30 ng/mL Health Based Reference Values* < 20 ng/mL Deficient 20-30 ng/mL Insufficient > 30 ng/mL Sufficient Assessment and Plan Assessment & Plan (1) Anxiety disorder: Code(s): F41.9 - Anxiety disorder, unspecified Qualifiers: Anxiety disorder type: generalized anxiety disorder Qualified Code(s): F41.1 - Generalized anxiety disorder Plan: Prescription was given for alprazolam, 0.25 mg per tablet to take 1 tablet only as needed for severe acute anxiety attacks. Patient aware of potential for medications be habit-forming (2) Hypercalcemia: Code(s): E83.52 - Hypercalcemia Plan: Mild elevation of serum calcium noted on recent labs.. Repeat ordered a repeat ionized calcium and serum parathyroid hormone levels to be done in a month (3) Immunization refused: Code(s): Z28.21 - Immunization not carried out because of patient refusal (4) Mammogram declined: Code(s): Z53.20 - Procedure and treatment not carried out because of patient's decision for unspecified reasons Plan: Patient refusing to get any vaccination (5) Essential hypertension: Code(s): I10 - Essential (primary) hypertension Plan: Blood pressure at goal of less than 130/80. Continue with current medication. Reinforced importance of following a low sodium diet, getting regular exercise, and lowering stress levels. Orders: Orders Basic Metabolic Panel Fasting 1 Month E83.52 - Hypercalcemia Parathyroid Hormone Intact 1 Month E83.52 - Hypercalcemia Calcium, Ionized 1 Month E83.52 - Hypercalcemia Medications: Refilled alprazolam 0.25 mg PO DAILY PRN 20 tabs 0RF anxiety F41.9 - Anxiety disorder, unspecified Coding Level of Care Code Est Pt Level 3 (42097) Diagnoses Generalized anxiety disorder F41.1 Anxiety disorder type: generalized anxiety disorder Hypercalcemia E83.52 Immunization refused Z28.21 Mammogram declined Z53.20 Essential hypertension I10 Additional Codes GABRIELLA-7 Assessment Billing - GABRIELLA-7 Assessment Tool: GABRIELLA-7 Assessment [id number] ([id number])
[2024-01-06 16:01] VITALS: BP 122/74; PULSE 58; O2SAT 94; BMI 25.2
== END 2024-01-06 16:33 | disposition home or self-care (01) ==
PROVIDERS: PCP Internal Medicine; Visit Provider Internal Medicine
DX: I10 Essential (primary) hypertension (principal); F41.1 Generalized anxiety disorder; E83.52 Hypercalcemia; Z28.21 Immunization not carried out because of patient refusal; Z53.20 Procedure and treatment not carried out because of patient's decision for unspecified reasons
CPT/HCPCS: 99213

== ENCOUNTER 2025-11-01 14:41 | Outpatient (AMB) | payer OTHER, SELFPAY ==
--- NOTE | 2025-11-01 14:45 | A.OFFPC_ITS ---
Vital Signs 11/01/25 14:47 Height 5 ft 2 in Weight 150 lb BMI 27.4 BP 140/78 H Blood Pressure Location Lt brachial Position Sitting Respiration 16 Pulse 63 Pulse Source Pulse Oximeter Temp 97.8 F Temp Source Oral Pulse Oximetry (%) 95 Oxygen Delivery Method Room Air Intake Visit Reasons: bp check Intake Note: Pt is here today for a b/p check for her pills [employer] Required: No Allergies No Known Allergies Allergy (Verified 11/01/25 15:03) Medication List - Last Reconciled 11/01/25 by Tegan Rodriguez MD alprazolam 0.25 mg PO DAILY PRN atenolol 100 mg PO DAILY cholecalciferol (vitamin D3) 50 mcg PO DAILY escitalopram oxalate 10 mg PO DAILY hydrochlorothiazide 25 mg PO DAILY Tobacco use date assessed: 11/01/25 Fall risk assessment: No Falls in past year Last assessed Fall Risk: 11/01/25 Dental Screening Dental Screen Date: 11/01/25 Did you have a dental visit in the last 12 months?: No Did you have a dental problem in the last 6 months where you did not have access to dental care?: No Was dental information given to patient?: Patient declined HPI bp check HPI Details The patient is a 70 year old female presenting for a follow-up visit for medication refills The patient's medication regimen includes escitalopram 10 mg for anxiety and alprazolam, which she takes as needed for anxiety. She notes infrequent use of alprazolam, stating a prescription of 30 pills from December of last year lasted until the summer. She also takes atenolol and a diuretic, for which she requested refills. Regarding health maintenance, the patient is up-to-date with her vaccines and recently received her flu shot. She also mentioned that she needs an eye exam and new glasses because hers are broken. [facility], [facility] Medical History Hypercalcemia Basal cell carcinoma (11/25/23) Mammogram declined Immunization refused Colon cancer screening Colonoscopy refused Erythema intertrigo Osteoporosis Dyslipidemia Impaired fasting glucose Anxiety disorder Essential hypertension Surgical History History of excision of mass (11/25/23) History of surgery on arm Family History Father Unknown family medical history Mother HTN (hypertension) Diabetes mellitus Brother No problems noted. Sister No problems noted. Social History Housing: House Alcohol intake: current Alcohol intake frequency: a few times a month Patient Tobacco Use Status: Current everyday Tobacco user Cigarette Packs Per Day: 1 e-Cigarette/Vaping Use: Never Used Current occupational status: retired Cognitive needs: No Hearing needs: No Vision needs: Yes Questionnaire PHQ-9 Over the last 2 weeks, how often have you been bothered by any of the following problems? 1. Little interest or pleasure in doing things: not at all 2. Feeling down, depressed, or hopeless: not at all 3. Trouble falling or staying asleep, or sleeping too much: not at all 4. Feeling tired or having little energy: not at all 5. Poor appetite or overeating: not at all 6. Feeling bad about yourself - or that you are a failure or have let yourself or your family down: not at all 7. Trouble concentrating on things, such as reading the newspaper or watching television: not at all 8. Moving or speaking so slowly that other people could have noticed. Or the opposite - being so fidgety or restless that you have been moving around a lot more than usual: not at all 9. Thoughts that you would be better off or of hurting yourself in some way: not at all Total score: 0 Depression Screening Interpretation: Negative Depression Screening Done: Yes 73748 - PHQ-9 Billing: Yes Source: Developed by Drs. Arden Jean, Lamar Lin, Danial Ward and colleagues, with an educational marie from [employer]. Thrive Questionnaire Date Thrive assessed: 01/18/25 I am a: Patient What is your living situation today?: I have a steady place to live Within the past 12 months, did the food you bought not last and you didn't have the money to get more?: Never true Within the past 12 months, did you worry whether your food would run out before you got money to buy more?: Never true Do you have trouble paying for medicines?: No Do you have trouble getting transportation to medical appointments?: No Do you have trouble paying your heating and electricity bill?: No Do you have trouble taking care of your child, family member or friend?: No Do you have trouble with day-to-day activities such as bathing, preparing meals, shopping, managing finances, etc.?: No Are you currently unemployed and looking for a job?: No Are you interested in more education?: No Please select the resources that you would like help with: None Currently or been in a relationship where the following occur: No concerns reported THRIVE Score: 0 AUDIT C Alcohol Use Questionnaire (AUDIT-C) 1. How often do you have a drink containing alcohol?: Monthly or less 2. How many drinks containing alcohol do you have on a typical day when you are drinking?: 1 or 2 3. How often do you have six or more drinks on one occasion?: Never Total Score: 1 GABRIELLA-7 AMB Questionnaire GABRIELLA-7 Date GABRIELLA - 7 assessed: 11/01/25 Feeling nervous, anxious, or on edge: 0 = Not at all Not being able to stop or control worryin = Several days Worrying too much about different things: 1 = Several days Trouble relaxin = Not at all Being so restless that it is hard to sit still: 0 = Not at all Becoming easily annoyed or irritable: 0 = Not at all Feeling afraid as if something awful might happen: 0 = Not at all Total GABRIELLA-7 score (0-4 normal; 5-9 mild; 10-14 moderate; 15-21 severe): 2 Source: Developed by Drs. Arden Jean, Lamar Lin, Danial Ward and colleagues, with an educational marie from [employer]. GABRIELLA-7 Assessment Billing GABRIELLA-7 Assessment Tool: GABRIELLA-7 Assessment 15675 Review of Systems Const Denies body aches, Denies fatigue, Denies headache(s) and Denies weakness Eyes Denies change in vision, Denies eye discharge and Denies itchy eyes ENT Denies dizziness, Denies headache(s), Denies nasal congestion, Denies nasal discharge and Denies sore throat Card Denies chest pain, Denies lightheadedness, Denies palpitations and Denies dyspnea Resp Denies chest congestion, Denies cough, Denies dyspnea and Denies wheezing GI Denies abdominal pain, Denies melena, Denies bloating, Denies hematochezia, D enies change in bowel habits and Denies heartburn Denies urinary frequency, Denies dysuria and Denies urinary urgency Musc Denies arthralgias and Reports stiffness Skin/Breast Denies lesions and Denies rash Neuro Denies dizziness, Denies headache(s) and Denies weakness Psych Denies anxiety, Denies change in appetite, Denies depression, Denies difficulty concentrating, Denies anhedonia, Denies mood swings and Denies panic attacks Endo Denies fatigue, Denies polydipsia, Denies polyuria and Denies palpitations Jameson/Lymph Denies easy bruising Aller/Immun Denies itchy eyes, Denies seasonal rhinorrhea and Denies wheezing Physical exam (Primary Care) Vital Signs: Last Vital Signs Temp 97.8 F 11/01/25 14:47 Pulse 63 11/01/25 14:47 Resp 16 11/01/25 14:47 BP 140/78 H 11/01/25 14:47 Pulse Ox 95 11/01/25 14:47 Oxygen Delivery Method Room Air 11/01/25 14:47 BMI result Body Mass Index 27.4 Tobacco/Smoking Status: Tobacco use Status Tobacco use date assessed 11/01/25 11/01/25 14:52 Patient Tobacco Use Status Current everyday Tobacco 11/01/25 14:46 e-Cigarette/Vaping Use Never Used 11/01/25 14:46 PHQ-9: PHQ-9 Score PHQ-9: Total score 0 11/01/25 15:11 Depression Screening Interpretation: Negative Thrive Assessment: Date of Thrive Assessment Date Thrive assessed 01/18/25 11/01/25 14:46 Currently or been in a relationship where the following occur: No concerns reported Const General: no acute distress and alert Orientation/consciousness: patient oriented x3 HENMT Ears: external ears normal General nose exam: Normal external nose present Mouth: Normal oral and palatal mucosa present and moist mucous membranes Eyes General: appearance normal, both eyes and all related structures Neck Neck: Yes full ROM, Yes no lymphadenopathy and Yes supple Resp Effort & Inspection: normal respiratory effort and able to speak in complete sentences Auscultation: clear to auscultation bilaterally Cardio Rate: regular rate Rhythm: regular rhythm Heart sounds: S1 normal heart sound present and S2 normal heart sound present GI Palpation (GI): Soft to palpation, nontender and no masses Auscultation: normal bowel sounds Back/Spine/Pelvis Back: No back tenderness Neuro General: patient oriented x3, gait normal, tone normal, moves all extremities, N ormal light touch and pain sensation and no focal motor deficits Cranial nerves: Yes CN's II-XII intact bilaterally Cognition (Neuro): normal cognition Extrem General: Yes full ROM, Yes no joint enlargement, Yes no clubbing, cyanosis or edema and Yes no calf tenderness Psych Appearance: grossly normal and well kempt Mental Status: mental status grossly normal Speech and movement: Normal speech and movement present Affect: normal affect Coding Level of Care Code Est Pt Level 4 (54479) Diagnoses Essential hypertension I10 Generalized anxiety disorder F41.1 Anxiety disorder type: generalized anxiety disorder Additional Codes GABRIELLA-7 Assessment Billing - GABRIELLA-7 Assessment Tool: GABRIELLA-7 Assessment 99549 ([id number]) PHQ-9 - 13133 - PHQ-9 Billing: Yes ([id number]) Assessment & Plan Assessment & Plan (1) Essential hypertension: Code(s): I10 - Essential (primary) hypertension Category: Medical Plan: Patient has been out of some of her medications for blood pressure for last several days. Refill sent for atenolol and hydrochlorothiazide. Forced importance of adhering to a low-salt diet and getting regular exercise and manage stress levels (2) Anxiety disorder: Code(s): F41.9 - Anxiety disorder, unspecified Category: Medical Qualifiers: Anxiety disorder type: generalized anxiety disorder Qualified Code(s): F41.1 - Generalized anxiety disorder Plan: Stable and controlled on escitalopram 10 mg daily and rarely needing to take alprazolam acute anxiety attacks, refill sent Plan An order for fasting blood work has been placed and is valid for one year; this includes a lipid panel, electrolytes, kidney function tests, calcium, A1c, parathyroid hormone, and vitamin D. The patient was advised to fast for 12 hours prior to the test. She declined a pneumonia vaccine today but was advised to ensure her pharmacy updates her records when she receives any future vaccines. She will arrange an eye exam independently. The patient was instructed to make a follow-up appointment for next year Medications: Refilled hydrochlorothiazide 25 mg PO DAILY 90 tabs 2RF I10 - Essential (primary) hypertension alprazolam 0.25 mg PO DAILY PRN 20 tabs 0RF anxiety F41.9 - Anxiety disorder, unspecified
[2025-11-01 14:47] VITALS: BP 140/78; PULSE 63; RESP 16; TEMP 36.6; O2SAT 95; BMI 27.4
== END 2025-11-01 15:13 | disposition home or self-care (01) ==
LOC: HO.HMCC 14:42
PROVIDERS: PCP Internal Medicine; Visit Provider Internal Medicine
DX: I10 Essential (primary) hypertension (principal); F41.1 Generalized anxiety disorder

== ENCOUNTER → 2025-11-01 14:41 | Outpatient (BNVA) | payer OTHER, SELFPAY | PROVIDERS: PCP Internal Medicine; Visit Provider Internal Medicine | DX: I10 Essential (primary) hypertension (principal); F41.1 Generalized anxiety disorder | CPT/HCPCS: 96127 ==